=== PATIENT | male | born 1965 | race Two or more races ===

== ENCOUNTER 2025-09-20 10:57 | Emergency (ER) | payer OTHER ==
[~2025-09-20] VITALS: Ht 167.6 cm; Wt 70.3 kg
[2025-09-20] MEDS ORDERED: LOSARTAN POTAS100 MG (11:20)
[2025-09-20] MEDS ORDERED: ZETIA10 MG (11:20)
[2025-09-20] MEDS ORDERED: PRAVASTATIN SOD40 MG (11:21)
[2025-09-20] MEDS ORDERED: ACETAMINOPHEN 500 MG GEL..CAP PO ONE (11:45)
[2025-09-20] MEDS ORDERED: 0.9 % SODIUM CHLORIDE 1,000 ML IV ONE (11:45)
[2025-09-20 12:35] LABS: BASO % 0.6 % (0.1-1.2); EOS # 0.13 (0.04-0.54); EOS % 2.4 % (0.7-7.0); LYMPH # 1.68 (1.18-3.74); LYMPH % 30.9 % (19.3-53.1); MEAN PLATELET VOLUME 10.00 fl (9.4-12.4); MONO # 0.53 (0.24-0.82); MONO % 9.7 % (4.7-12.5); NEUT # 3.05 (1.56-6.13); NEUT % 56.0 % (34.0-71.1); RED CELL DISTRIBUTION WIDTH 12.2 % (11.6-14.4)
[2025-09-20 12:57] LABS: INR 0.94
[2025-09-20 13:15] LABS: ALT/SGPT 56.0 U/L (12-78); AST/SGOT 29.0 U/L (15-37); BILIRUBIN TOTAL 0.58 mg/dL (0.3-1.2); BUN CREA RATIO 14.0 (7.0-25.0); CREATININE SERUM 1.21 mg/dL (0.70-1.30); GFR 60.96; GLOBULINA 3.4 G/DL (2.4-3.5); GLUCOSE FASTING 111.0 mg/dL (65-100); OSMOLALITY SERUM 285.0 MOSM/KG (275-295)
== END 2025-09-20 17:27 | disposition home or self-care (01) ==
LOC: ER 10:58
PROVIDERS: General Practice
DX: S01.82XA Laceration with foreign body of other part of head, initial encounter (principal); W18.39XA Other fall on same level, initial encounter; Y93.89 Activity, other specified; Y92.89 Other specified places as the place of occurrence of the external cause; Z88.0 Allergy status to penicillin